=== PATIENT | female | born 1930 | race Caucasian/White ===

== ENCOUNTER 2016-10-05 13:53 | Emergency (ER) | payer MEDICARE, BC ==
[~2016-10-05] VITALS: Ht 160 cm; Wt 64.4 kg
[~2016-10-05 13:53] MED LIST: FE T325T PO; NAPR250T57 PO
[2016-10-05 14:03] VITALS: BP 148/67; PULSE 76; RESP 16; TEMP 98.2; O2SAT 94
[2016-10-05] MEDS ORDERED: FERR150C (14:20)
[2016-10-05] MEDS ORDERED: CEPH-460 PO (14:35)
--- NOTE | 2016-10-05 14:35 | PD ---
HPI Chief Complaint: Skin Problem Time Seen by Provider: 14:11 Travel History International Travel<30 days: No Contact w/Intl Traveler<30days: No Traveled to known affect area: No History of Present Illness HPI Is a well 86 year-old woman who presents to the emergency department complaining of right foot redness warmth and swelling. No significant pain. Was seen at the urology office today for follow-up of an InterStim bladder stimulator that she had placed and they're worried that she may have a DVT. There is. No leg swelling. No other complaints. History Past Medical History Narrative Medical Bladder problems Anemia Tetanus Vaccination: < 5 Years Influenza Vaccination: Yes Menopausal: Yes Social History Alcohol Use: Yes (5X WEEK) Tobacco Use: No Allergies-Medications (Allergen,Severity, Reaction): Coded Allergies: No Known Allergies (Unverified , 10/05/16) Reported Meds & Prescriptions Reported Meds & Active Scripts Active Keflex (Cephalexin) 500 Mg Cap 500 Mg PO Q8H Reported Ferrex 150 (Polysaccharide Iron Complex) 150 Mg Cap Review of Systems Except as stated in HPI: all other systems reviewed are Neg Physical Exam Narrative GENERAL: Well-appearing 86 year-old woman, no acute distress. SKIN: Warm and dry. CARDIOVASCULAR: Warm and well perfused. RESPIRATORY: Normal rate and effort. MUSCULOSKELETAL: Normal gross appearance of the foot and ankle. On palpation there is some bony prominences below the medial malleolus. Patient states she was told before was a bone spur. There is some warmth over the anterior peterson, little bit of redness over the anterior peterson and the dorsum of the foot. I don' t see any appreciable swelling. Is no edema. There is no calf swelling. There is no calf tenderness or pain. No other abnormality. NEUROLOGICAL: Awake and alert. No gross deficits. Data Data Last Documented VS Vital Signs Date Time Temp Pulse Resp B/P Pulse Ox O2 Delivery O2 Flow Rate FiO2 10/05/16 14:03 98.2 76 16 148/67 94 Orders Ankle, Complete ([id number]) (10/05/16 ) [facility] Medical Decision Making Medical Screen Exam Complete: Yes Emergency Medical Condition: Yes Interpretation(s) Right ankle x-ray: Advanced arthritis, no acute fracture. Differential Diagnosis Cellulitis, arthritis, DVT, other Narrative Course Medical decision making This an 86 year-old woman who presents emergent department with warmth and redness and some swelling of her foot, and the dorsum of her leg. She describes some ankle swelling as well but soft there now. There is been no calf swelling edema or calf tenderness to suggest DVT. I really think his presentation is inconsistent with DVT. We'll check x-ray given this unusual bony prominence of the fact that the patient's that she's been having some clicking sounds from it. Nothing truly hurting her. We'll plan on treatment for cellulitis, elevation of the leg, and follow-up with Dr. Donovan if not improving in the next 2-3 days. Diagnosis Primary Impression: Cellulitis of right leg Additional Instructions: Take antibiotics as prescribed. Elevate the right leg as much as possible. Return to the emergency department for any swelling or edema in the right leg or calf. Follow-up with your primary doctor on Sunday if not improved. Med/Other Pt SpecificInfo: Prescription(s) given Scripts Cephalexin (Keflex)500 Mg [id number] Mg PO Q8H #30 CAP Ref 0 Prov:Rashaun Roberts MD 10/05/16 Disposition: 01 DISCHARGE HOME Condition: Stable Rashaun Roberts MD Oct 05, 2016 14:35
--- NOTE | 2016-10-05 15:29 | RADHPO ---
EXAM DATE/TIME: 10/05/2016 15:09 [facility] COMPARISON: WRIST LEFT COMPLETE ([id number]), April 22, 2016, 12:46. INDICATIONS : Right ankle pain from swelling. MEDICAL HISTORY : None. SURGICAL HISTORY : None. ENCOUNTER: Initial ACUITY: 1 week PAIN SCORE: 1/10 LOCATION: lateral side of right ankle. FINDINGS: The exam demonstrates advanced degenerative changes in the talonavicular joint. There are degenerativ e changes throughout the midfoot. No acute fracture is seen. No obstructive lesion is present. CONCLUSION: 1. Advanced arthritis. No acute fracture. Leonardo Bronson MD on October 05, 2016 at 15:23 Board Certified Radiologist. This report was verified electronically.
== END 2016-10-05 16:05 | disposition home or self-care (01) ==
LOC: PHED 13:53
DX: L03.115 Cellulitis of right lower limb (principal); Z96.0 Presence of urogenital implants
CPT/HCPCS: 73610; 99283

== ENCOUNTER 2017-06-27 18:58 | Emergency (ER) | payer MEDICARE, BC ==
[~2017-06-27] VITALS: Ht 162.6 cm; Wt 68.8 kg
[~2017-06-27 18:58] MED LIST changes: +CEPH-460 PO; -FE T325T PO; +FERR150C; -NAPR250T57 PO
[2017-06-27 19:01] VITALS: BP 192/87; PULSE 93; RESP 18; TEMP 97.8; O2SAT 95
--- NOTE | 2017-06-27 19:38 | PD ---
HPI Chief Complaint: Edema Time Seen by Provider: 19:21 Travel History International Travel<30 days: No Contact w/Intl Traveler<30days: No Traveled to known affect area: No History of Present Illness HPI The patient was seen and examined in the presence of the nurse. This patient complains of swelling in her feet and ankles. Duration is one day. However, her daughter says that she's had come and go swelling in her feet and ankles for at least a month. No pain or injury or fever. No chest pain or shortness of breath. Symptoms severity is mild. No alleviating factors. No exacerbating factors. PFSH Past Medical History Hx Anticoagulant Therapy: No Anemia: Yes Arthritis: Yes Cancer: Yes (RIGHT BREAST) Chemotherapy: No Diminished Hearing: No Immunizations Current: Yes Radiation Therapy: No Menopausal: Yes Past Surgical History Eye Surgery: Yes (CATARACTS BILAT, LEFT EPI-RETINAL MEMBRANE, RT LASER ) Hysterectomy: No Joint Replacement: Yes (LEFT HIP X 3, LEFT KNEE X 1, RIGHT KNEE X 2, RIGHT HIP X 1) Mastectomy: Yes (PARTIAL RIGHT) Social History Alcohol Use: Yes (5X WEEK) Tobacco Use: No Substance Use: No Allergies-Medications (Allergen,Severity, Reaction): Coded Allergies: No Known Allergies (Unverified Adverse Reaction, Unknown, 06/27/17) Reported Meds & Prescriptions Reported Meds & Active Scripts Active Keflex (Cephalexin) 500 Mg Cap 500 Mg PO Q8H Reported Ferrex 150 (Polysaccharide Iron Complex) 150 Mg Cap Review of Systems General / Constitutional: No: Fever Eyes: No: Visual changes HENT: No: Headaches Cardiovascular: Positive: Edema, No: Chest Pain or Discomfort Respiratory: No: Shortness of Breath Gastrointestinal: No: Abdominal Pain Genitourinary: No: Dysuria Musculoskeletal: Positive: Edema, No: Pain Skin: No Rash Neurologic: No: Weakness Psychiatric: No: Depression Endocrine: No: Polydipsia Hematologic/Lymphatic: No: Easy Bruising Physical Exam Narrative GENERAL: Pleasant elderly well-developed patient in no apparent distress. SKIN: Focused skin assessment reveals no rash and nodules. Skin is Warm and dry. HEAD: Atraumatic. Normocephalic. EYES: Pupils equal and round. No scleral icterus. No injection or drainage. ENT: No nasal bleeding or discharge. Mucous membranes pink and moist. NECK: Trachea midline. No JVD. CARDIOVASCULAR: Regular rate and rhythm. No murmur appreciated. RESPIRATORY: No accessory muscle use. Clear to auscultation. Breath sounds equal bilaterally. GASTROINTESTINAL: Abdomen soft, non-tender, nondistended. Hepatic and splenic margins not palpable. MUSCULOSKELETAL: No obvious deformities. No clubbing. No cyanosis. Symmetric edema the feet and ankles. No warmth or redness or tenderness. NEUROLOGICAL: Awake and alert. No obvious cranial nerve deficits. Motor grossly within normal limits. Normal speech. PSYCHIATRIC: Appropriate mood and affect; insight and judgment reasonable for age Data Data Last Documented VS Vital Signs Date Time Temp Pulse Resp B/P (MAP) Pulse Ox O2 Delivery O2 Flow Rate FiO2 06/27/17 20:00 Room Air 06/27/17 20:00 97.8 93 18 192/87 (122) 95 Orders Orders Iv Access Insert/Monitor (06/27/17 19:33) Complete Blood Count With Diff (06/27/17 19:33) Comprehensive Metabolic Panel (06/27/17 19:33) Electrocardiogram (06/27/17 ) B-Type Natriuretic Peptide (06/27/17 19:34) Chest, Single Ap (06/27/17 ) Labs Laboratory Tests Test 06/27/17 20:06 White Blood Count 6.5 TH/MM3 Red Blood Count 4.54 MIL/MM3 Hemoglobin 13.9 GM/DL Hematocrit 42.6 % Mean Corpuscular Volume 93.7 FL Mean Corpuscular Hemoglobin 30.7 PG Mean Corpuscular Hemoglobin Concent 32.7 % Red Cell Distribution Width 13.0 % Platelet Count 346 TH/MM3 Mean Platelet Volume 7.2 FL Neutrophils (%) (Auto) 72.1 % Lymphocytes (%) (Auto) 17.1 % Monocytes (%) (Auto) 7.0 % Eosinophils (%) (Auto) 2.9 % Basophils (%) (Auto) 0.9 % Neutrophils # (Auto) 4.6 TH/MM3 Lymphocytes # (Auto) 1.1 TH/MM3 Monocytes # (Auto) 0.5 TH/MM3 Eosinophils # (Auto) 0.2 TH/MM3 Basophils # (Auto) 0.1 TH/MM3 CBC Comment DIFF FINAL Differential Comment Blood Urea Nitrogen 12 MG/DL Creatinine 0.62 MG/DL Random Glucose 99 MG/DL Total Protein 7.2 GM/DL Albumin 3.6 GM/DL Calcium Level 8.6 MG/DL Alkaline Phosphatase 105 U/L Aspartate Amino Transf (AST/SGOT) 21 U/L Alanine Aminotransferase (ALT/SGPT) 19 U/L Total Bilirubin 0.5 MG/DL Sodium Level 131 MEQ/L Potassium Level 4.4 MEQ/L Chloride Level 97 MEQ/L Carbon Dioxide Level 26.3 MEQ/L Anion Gap 8 MEQ/L Estimat Glomerular Filtration Rate 91 ML/MIN B-Type Natriuretic Peptide 59 PG/ML MDM Medical Decision Making Medical Screen Exam Complete: Yes Emergency Medical Condition: Yes Medical Record Reviewed: Yes Differential Diagnosis Renal failure, liver failure, congestive heart failure Narrative Course I have reviewed the patient's electronic medical record. IV placed CBC is normal metabolic profile shows hyponatremia of 131 LFT's are normal I reviewed her EKG shows sinus rhythm without ST elevation or ectopy BNP is normal I reviewed her chest x-ray shows no pulmonary edema Patient is clinically stable for outpatient follow-up. Etiology of her foot and ankle swelling is unclear but no evidence of organ failure Diagnosis Primary Impression: Bilateral swelling of feet and ankles Additional Instructions: Elevate legs Wear knee-high compression stockings The patient was advised to follow up with their physician and return if they worsen. Med/Other Pt SpecificInfo: Other Disposition: 01 DISCHARGE HOME Condition: Stable Fuentes Ribera MD Jun 27, 2017 19:38
[2017-06-27 20:00] VITALS: BP 192/87; PULSE 93; RESP 18; TEMP 97.8; O2SAT 95
--- NOTE | 2017-06-27 20:02 | RADRPT ---
EXAM DATE/TIME: 06/27/2017 19:48 [facility] COMPARISON: No previous studies available for comparison. INDICATIONS : Chest discomfort, swelling in lower extremities starting today MEDICAL HISTORY : None. SURGICAL HISTORY : None. ENCOUNTER: Initial ACUITY: 1 day PAIN SCORE: 0/10 LOCATION: Bilateral chest FINDINGS: A single view of the chest demonstrates the lungs to be symmetrically aerated without evidence of mas s, infiltrate or effusion. Heart is normal size. There is a large opacity in the retrocardiac midli ne lower chest measuring 12 cm in width, characteristic of a large hiatus hernia.. Degenerative wynne ges and flattening of the left humeral head.. CONCLUSION: 1. The lungs are clear. 2. Large hiatus hernia. Wayne Herrera MD on June 27, 2017 at 20:00 Board Certified Radiologist. This report was verified electronically.
[2017-06-27 20:22] LABS: CHLORIDE 97 MEQ/L (98-107); POTASSIUM 4.4 MEQ/L (3.5-5.1); SODIUM (NA) 131 MEQ/L (136-145)
[2017-06-27 20:26] LABS: ANION GAP 8 MEQ/L (5-15); BICARBONATE 26.3 MEQ/L (21.0-32.0); BLOOD UREA NITROGEN 12 MG/DL (7-18)
[2017-06-27 20:28] LABS: AUTOMATED NEUTROPHIL # 4.6 TH/MM3 (1.8-7.7); BASOPHIL # 0.1 TH/MM3 (0-0.2); BASOPHIL % 0.9 % (0.0-2.0); EOSINOPHIL # 0.2 TH/MM3 (0-0.4); EOSINOPHIL % 2.9 % (0.0-4.0); HEMATOCRIT 42.6 % (35.0-46.0); HEMO FLAGS DIFF FINAL; LYMPH % 17.1 % (9.0-44.0); LYMPHOCYTE # 1.1 TH/MM3 (1.0-4.8); MEAN CELL VOLUME 93.7 FL (80.0-100.0); MEAN CORPUSCULAR HEMOGLOBIN 30.7 PG (27.0-34.0); MEAN CORPUSCULAR HGB CONC 32.7 % (32.0-36.0); NEUT % 72.1 % (16.0-70.0); PLATELET COUNT 346 TH/MM3 (150-450); RED BLOOD COUNT 4.54 MIL/MM3 (4.00-5.30); WHITE BLOOD COUNT 6.5 TH/MM3 (4.0-11.0)
[2017-06-27 20:29] LABS: ALT (GPT) 19 U/L (10-53); AST (GOT) 21 U/L (15-37); GLOMERULAR FILTRATION RATE 91 ML/MIN (>89)
[2017-06-27 20:30] LABS: TOTAL BILIRUBIN ADULT 0.5 MG/DL (0.2-1.0)
[2017-06-27 20:32] LABS: ALKALINE PHOSPHATASE 105 U/L (45-117)
[2017-06-27 20:56] VITALS: BP 188/82
--- NOTE | 2017-06-28 10:33 | EKG ---
Date Performed: 06/27/2017 Time Performed: 19:43:12 PTAGE: 86 years EKG: Sinus rhythm POSSIBLE LEFT ATRIAL ENLARGEMENT POSSIBLE RIGHT VENTRICULAR CONDUCTION DELAY PROBABLE SEPTAL MYOCARD IAL INFARCTION ABNORMAL ECG NO PREVIOUS TRACING DOCTOR: Neal Olmos Interpretating Date/Time 06/28/2017 10:32:37
== END 2017-06-27 20:58 | disposition home or self-care (01) ==
LOC: PHED 18:58
DX: R22.43 Localized swelling, mass and lump, lower limb, bilateral (principal); Z85.3 Personal history of malignant neoplasm of breast; R94.31 Abnormal electrocardiogram [ECG] [EKG]; Z79.899 Other long term (current) drug therapy
CPT/HCPCS: 71010; 80053; 83880; 85025; 93005